=== PATIENT | male | born 1955 | race Caucasian/White ===

== ENCOUNTER 2016-08-20 03:06 | Inpatient (IN) | payer MEDICARE, OTHER ==
[2016-08-19 23:44] LABS: BASOPHIL# 0.1 X10e3 (0-0.3); BASOPHIL% 0.8 % (0-2.5); EOSINOPHIL# 0.1 X10e3 (0-0.7); EOSINOPHIL% 1.5 % (0.0-7.0); HEMATOCRIT 37.4 % (38.0-50.0); HEMOGLOBIN 12.3 gm/dL (13.0-16.0); LYMPHOCYTE# 1.2 X10e3 (1.0-3.5); LYMPHOCYTE% 14.3 % (17.0-45.0); MEAN CELL VOLUME 88.3 FL (83-96); MEAN CORPUSCULAR HGB CONC 32.9 g/dL (30-36); MEAN PLATELET VOLUME 8.7 FL (6.5-11.5); MONOCYTE# 0.9 X10e3 (0-1.0); MONOCYTE% 11.7 % (3.0-12.0); NEUTROPHIL# 5.8 X10e3 (1.5-7.1); NEUTROPHIL% 71.7 % (40-75); PLATELET COUNT 163 X10e3 (140-420); RED BLOOD COUNT 4.24 X10e (3.90-5.60); RED CELL DISTRIBUTION WIDTH 14.5 % (11.0-15.5); WHITE BLOOD COUNT 8.1 X10e3 (4.0-10.5)
[2016-08-19 23:45] LABS: DIFF IND NO
--- NOTE | ~2016-08-20 | CR72 ---
[facility] A Service of [facility] & [facility] RADIOLOGY TEXT RESULTS PATIENT: ANA MARIA WEISS LOCATION: [place] [address]- : [birth year] UNIT #: [id number] AGE: [address]: Antoine Aparicio MD SEX: M ORDER DR: [id number] [facility] [address] [place], [place] [address] [id number] MR#: [id number] Acc #: [id number] NAME: ANA MARIA WEISS : 1955 SEX: M STUDY DATE/TIME: 08/20/2016 0:17 UNIT: [facility] ROOM: [facility] STUDY DESCRIPTION: CR Chest Single View Portable Attending Physician: Antoine Aparicio M.D. Ordering Physician: Ed Doctor [id number] [facility] Primary Care Physician: Syl Abrams M.D. MEDICAL IMAGING REPORT This report is preliminary unless electronic signature is present EXAM Portable chest 08/20 INDICATIONS Left side chest pain radiating to the neck and down the arm. Symptoms for 1 day. History of CHF. FINDINGS AP portable chest compared with 03/08/2016. Cardiomegaly is stable. Left-side pacer unchanged. There is a small volume of pleural fluid on both sides of the chest. Minimal right base atelectasis. Lungs otherwise are clear. There is no pneumothorax. IMPRESSION Stable cardiomegaly. There are trace bilateral pleural effusions and there is some mild right base atelectasis. Dictated by... Jeremi Pinto Jr., M.D. THIS IS AN ELECTRONICALLY VERIFIED REPORT Jeremi Pinto Jr., M.D. at 08/20/2016 2:25 PM FRED/sabra TD: 08/20/2016 10:55 JOB #: [id number] MEDICAL IMAGING REPORT COPY
--- NOTE | ~2016-08-20 | CR72 ---
[facility] A Service of [facility] & [facility] RADIOLOGY TEXT RESULTS PATIENT: ANA MARIA WEISS LOCATION: [place] [address]- : [birth year] UNIT #: [id number] AGE: [address]: Antoine Aparicio MD SEX: M ORDER DR: [id number] [facility] [address] [facility] [address] [place], [place] [address] [id number] MR#: [id number] Acc #: [id number] NAME: ANA MARIA WEISS : 1955 SEX: M STUDY DATE/TIME: 08/23/2016 11:15 UNIT: [facility] ROOM: [facility] STUDY DESCRIPTION: CR Chest Single View Portable Attending Physician: Antoine Aparicio M.D. Ordering Physician: Antoine Aparicio M.D. Primary Care Physician: Syl Abrams M.D. MEDICAL IMAGING REPORT This report is preliminary unless electronic signature is present EXAM Chest portable 08/23/2016 11:/37 hours. HISTORY 61-year-old with one week history of cough, congestion and fluid overload. Mild CHF. COMPARISON 08/20/2016. FINDINGS Portable upright chest demonstrates stable moderate cardiomegaly with multilead pacer unchanged. There is no significant pulmonary venous distension. No interstitial edema or effusion. IMPRESSION 1. Stable cardiomegaly with pacer device. 2. Pulmonary vascularity is normal. The lungs are clear and there are no effusions. Dictated by... Shikha Avelar M.D. THIS IS AN ELECTRONICALLY VERIFIED REPORT Shikha Avelar M.D. at 08/23/2016 8:40 PM SMM/gz TD: 08/23/2016 14:53 JOB #: [id number] MEDICAL IMAGING REPORT COPY
--- NOTE | ~2016-08-20 | EKG ---
PATIENT: ANA MARIA WEISS UNIT #: [id number] Ventricular Rate: 115 BPM Atrial Rate: 119 BPM QRS Duration: 136 ms Q-T Interval: 328 ms QTC Calculation(Bezet): 453 ms Calculated R [place]: -42 degrees Calculated T [place]: 129 degrees Diagnosis Line: Atrial fibrillation Diagnosis Line: Left axis deviation Diagnosis Line: Left bundle branch block Diagnosis Line: Abnormal ECG Diagnosis Line: When compared with ECG of 08-MAR-2016 08:47, Diagnosis Line: No significant change was found Diagnosis Line: Confirmed by LYNDSAY SANCHES MD ([id number]) on 08/20/2016 Diagnosis Line: 7:15:12 AM INTERPRETING MD: MYRON ROSAS
--- NOTE | ~2016-08-20 | FU ---
[facility] Nutrition Therapy DATE: 08/23/16 Patient: ANA MARIA WEISS Physician: BEATRICE Address: [address] Room/Bed: [address] [place] [address], Zip: [place] [id number] Admit Date: 08/21/16 Date of : 55 Height: 5 7 Weight: 273 124.2 NUTRITION MONITORING/FOLLOW-UP: Reason: MD consult: 45-60g carbs per meal/diet education Assessment: RD previously assessed this patient. Provided both verbal and written CC diet education with the following handouts: -T2DM MNT -1800 calorie per day 5-day meal plan -DM label reading tips Patient showed moderate-poor understanding and motivation for education. Potential barriers include lifestyle, resistance to change, education level and disinterest. The patient was pleasant. See RD recs below, will follow-up as scheduled. Left RD contact info. Recommendations: Continue current diet, fluids per MD. RD provided diet education as stated above. Respectfully, Talisha Reyes RD, LD Food and Nutritional Services [facility] cc: client file
--- NOTE | ~2016-08-20 | DS ---
Unit #: [id number] #: [id number] Patient: ANA MARIA WEISS [id number] [address] [place], [place] [address] [id number] I MR#: [id number] NAME: ANA MARIA WEISS. ROOM: 547 Age: 61 Sex: M Admission Date: 08/20/2016 : 1955 Discharge Date: 08/23/2016 Attending Physician: Antoine Aparicio M.D. Primary Care Physician: Syl Abrams M.D. DISCHARGE SUMMARY DISCHARGE DIAGNOSES 1. Acute on chronic systolic/diastolic heart failure. 2. Musculoskeletal chest pain, ruled out for acute myocardial infarction. 3. Nonischemic cardiomyopathy with ejection fraction of 25% to 30%. 4. Hypertension. 5. Right bundle branch block. 6. Permanent atrial fibrillation and a controlled ventricular rate, on Eliquis. 7. Diabetes mellitus type 2, uncontrolled. 8. Obesity. 9. Hypokalemia. 10. Hypomagnesemia. DISCHARGE MEDICATIONS 1. Entresto 24/26 mg b.i.d. 2. Eliquis 5 mg b.i.d. 3. Amitriptyline 100 mg q.h.s. 4. Metoprolol tartrate 100 mg b.i.d. 5. Colace 100 mg daily p.r.n. 6. Furosemide 40 mg b.i.d. 7. Zaroxolyn 2.5 mg every other day. 8. Lipitor 40 mg q.h.s. 9. Cozaar 100 mg daily. 10. NovoLog insulin per sliding scale. 11. Lantus 30 units subcu q.h.s. 12. Aspirin 81 mg daily. 13. Tramadol 50 mg daily p.r.n. 14. Aldactone 12.5 mg daily. 15. Omeprazole 20 mg daily. 16. Potassium chloride 10 mEq daily. 17. Baclofen 10 mg q.h.s. HOSPITAL COURSE This is a 61-year-old male who presented to the emergency room with the complaint of chest pain and shortness of breath. He was admitted with acute on chronic systolic/diastolic heart failure. He was ruled out for an acute myocardial infarction where his troponin was negative. He had no acute electrocardiographic changes. His pain appeared to be musculoskeletal in origin where it was increased with deep inspiration. He had an elevated BNP of 1,337 that was treated with IV diuretics. Fluid restriction was continued. Because he had continued dyspnea and symptoms of orthopnea with 3+ leg edema, his diuretics were increased. Unit #: [id number] #: [id number] Patient: ANA MARIA WEISS He was in atrial fibrillation with rapid ventricular response that was treated with increased Metoprolol from 25 mg b.i.d. to 100 mg b.i.d. He eventually symptomatically improved. Because of his known heart failure, he was started on Entresto. The cost of Entresto was obtained, which was a little more than $8 per month, which was affordable. Electrolytes were supplemented. He had uncontrolled diabetes and a period of hypoglycemia. Dr. Mcrae saw the patient, and his insulin was adjusted. On the day of admission the patient's vital signs were stable. He still has some leg edema but has improved. Renal function increased to 1.6, but he has known chronic kidney disease. On the day of admission his creatinine was 1.4. He is stable for discharge. ASSESSMENT VITAL SIGNS: Blood pressure 147/98, heart rate 79, temperature 97.6. CHEST: Clear to auscultation. HEART: S1, S2 with irregularly irregular rhythm. ABDOMEN: Soft, nontender with bowel sounds present. EXTREMITIES: With 1+ leg edema. DIAGNOSTIC STUDIES LABORATORY STUDIES: Glucose 79, BUN 34, creatinine 1.4, sodium 139, potassium 3.2. White count 8.1, hemoglobin 12.3, hematocrit 37.4, platelet count 163. CONSULTATIONS Dr. Mcrae, endocrinology. DISCHARGE INSTRUCTIONS 1. The patient will be discharged home today. 2. Follow up with Dr. Mancilla in 2-4 weeks. 3. Follow up with Dr. Mcrae in 3-4 weeks. 4. The cost of Entresto for the patient is $8.20. 5. The patient will need a BMP in 4 weeks to follow up on creatinine. 6. Losartan has been discontinued. 7. Continue beta-sury and oral diuretics. 8. An 1,800 mL fluid restriction at home has been encouraged. Dictated by... Joyce CarmichaelPWillRWillN. for Lorenzo Elliott/nehemiah TD: 08/26/2016 07:36 JOB #: [id number] Unit #: [id number] #: [id number] Patient: ANA MARIA WEISS DISCHARGE SUMMARY X Samm Shepherd APRN DISCHARGE SUMMARY
--- NOTE | ~2016-08-20 | A ---
[facility] Nutrition Therapy DATE: 08/20/16 Patient: ANA MARIA Perez ABHISHEK Physician: HEIDY Address: [address] [facility] Room/Bed: [address] [place] [address], Zip: [place] [address] Admit Date: 08/20/16 Date of : [birth year] Height: 5 7 Weight: 256 116.11 NUTRITIONAL ASSESSMENT: REASON: Consult RE: Recent weight loss; MNS screen; High BMI PMH: Ischemic CMY, HTN, Afib, HTN, HLD, CHF, Anemia, Type 2 DM, Peripheral neuropathy Anthropometrics: Ht: 5'7"Wt: 256lbsBMI: 40 Labs: Gluc 198, BUN 27, Creat 1.3 Meds: Furosemide, Zofran I/O & Bowel function: None documented Skin Integrity: WNL Assessment: Pt is 61 year old male admitted for chest pain. Pt reports recent unintentional weight loss of approx 50 lbs. Supported by documented weights of 294 lbs on 03/08/16. Pt reports currently cutting out bread and reducing sodium intake d/t cardiac issues. Weight loss likely improved fluid status/intentional fat loss. Pt states normally good appetite, eating well. Recommended to continue to monitor weight changes. Pt currently on CC + HH diet with 720mL fluid restriction. Reports good tolerance of diet. Pt reports good understanding of nutritional needs, received education last admission and states no additional needs at this time. Will continue to monitor per protocol. Dx: Excessive caloric intake R/T PMH AEB BMI 40 Intervention: 1. HH/CC diet + 720 mL fluid restriction 2. Meds per MD Monitoring, Evaluation and Goals: 1. Continue to encourage adequate PO Intake 2. Prevent unintentional weight loss; maintain LBM Recommendations: 1. Continue to encourage adequtae PO Intake as tolerated Pt is Mild Nutritional Risk -- will f/u per protocol Respectfully, [facility] Nutrition Therapy DATE: 08/20/16 Patient: ANA MARIA WEISS Physician: BEATRICE Address: [address] [facility] Room/Bed: [address] [place] [address], Zip: [place] [address] Admit Date: 08/20/16 Date of : [birth year] Height: 5 7 Weight: [address], LD Food and Nutritional Services [facility] cc: client file
--- NOTE | ~2016-08-20 | CO ---
Unit #: [id number] #: [id number] Patient: ANA MARIA WEISS [id number] [address] [address] [id number] I MR#: [id number] NAME: ANA MARIA WEISS. ROOM: 547 Age: 61 Sex: M Admission Date: 08/21/2016 : 1955 Attending Physician: Antoine Aparicio M.D. Primary Care Physician: Syl Abrams M.D. Consultation Date: 08/22/2016 CONSULTATION REPORT REASON FOR CONSULTATION Management of diabetes mellitus with hypoglycemia. HISTORY OF PRESENT ILLNESS This is a 61-year-old male with history of multiple medical problems, who has type 2 diabetes mellitus and nonischemic cardiomyopathy. He has been admitted with the chest pain. He has insulin-dependent type 2 diabetes mellitus. He takes Lantus 90 units in the night and also takes some NovoLog about 40 units with meals. This morning, the patient had a low blood sugar of 45. I have been asked to see the patient for further evaluation and management. PAST MEDICAL HISTORY Type 2 diabetes mellitus, insulin dependent; nonischemic cardiomyopathy; hypertension; anticoagulation therapy with Eliquis at home; obstructive sleep apnea; morbid obesity; peripheral neuropathy; congestive heart failure. SOCIAL HISTORY Lives at home with . Nonsmoker. No alcohol. He is compliant with his medications. HOME MEDICATIONS Lantus 90 units at bedtime, NovoLog with meals about 40 units plus sliding scale, taking Eliquis 5 mg b.i.d., Lopressor, baclofen, losartan, Lipitor. ALLERGIES No known drug allergies. FAMILY HISTORY Coronary artery disease. REVIEW OF SYSTEMS 10-point review of system is remarkable for the shortness of air, hypoglycemia, and hyperglycemia. Rest of the 10-point review of system is unremarkable. PHYSICAL EXAMINATION GENERAL: He is awake, alert, oriented to time, place, and person. VITAL SIGNS: Stable, temperature 97.8, pulse is 80, respirations 21, blood pressure 172/112. HEENT: EOMI. Pupils equally reactive to light. NECK: Supple. No thyromegaly noted. CHEST: Good air entry. Unit #: [id number] #: [id number] Patient: WEISS,ANA MARIA L CVS: Regular rhythm. S1, S2. ABDOMEN: Obese. Bowel sounds positive. Nontender. EXTREMITIES: No ulcers noted. DIAGNOSTIC STUDIES LABORATORY RESULTS: Creatinine is 1.6, sodium is 141. A1c is 9.4. LDL is 77. ASSESSMENT 1. Type 2 diabetes mellitus, insulin dependent complicated with the hypoglycemia mostly due to the poor compliance of the diet at home. 2. Nonischemic cardiomyopathy. 3. Hypertension. 4. Hyperlipidemia. 5. Morbid obesity. 6. Obstructive sleep apnea. PLAN Note, the patient has not been received his Levemir. Today, I am going to decrease his Levemir to 30 units at the bedtime and NovoLog 8 units each meal plus continue low-dose supplemental insulin. We will get the nutrition consult for consistent carb diet and limiting his per day calories. I will continue to follow the patient for further management. Thanks again for consultation. Dictated by... Lorenzo Whaley/tariq TD: 08/23/2016 01:29 JOB #: [id number] CONSULTATION REPORT X Shelia Mcrae MD X CONSULTATION REPORT
--- NOTE | ~2016-08-20 | HP ---
Unit #: [id number] #: [id number] Patient: ANA MARIA WEISS [id number] [place] [address] [facility]. [place], [place] [address] [id number] I MR#: [id number] NAME: ANA MARIA WEISS ROOM: 547 Age: 61 Sex: M Admission Date: 08/20/2016 : 1955 Attending Physician: Antoine Aparicio M.D. Primary Care Physician: Syl Abrams M.D. HISTORY AND PHYSICAL HISTORY OF PRESENT ILLNESS This is a 61-year-old male, well known to our office, who follows with Dr. Mancilla. He presented to the ER on 08/19 in the afternoon with chest pain that started around 4 p.m. yesterday while watching TV. Pain lasted 30 to 40 minutes and was relived after he arrived to the ER and was administered some sublingual nitroglycerin. He stated the pain was a tightness but then told Dr. Aparicio that it was a sharp, shooting pain that occurred over his left anterior chest wall and underneath his left breast and also to his pacer site, which is his left subclavian area. Had pain down his left arm and down legs. He had associated nausea and dizziness and shortness of breath. He had one set of cardiac enzymes in the ER, which were negative, and an EKG, which just showed A fib with RVR and a left bundle branch block with left axis deviation and LVH, rate of 115, which, upon reviewing old EKGs, is his baseline. PAST MEDICAL HISTORY He has a past medical history of nonischemic cardiomyopathy, hypertension, chronic left bundle branch block, permanent A fib - maintained on anticoagulation with Eliquis at home. He had chest pain and ischemia on a Lexiscan Cardiolite stress test. Last cardiac catheterization in 2003 showed an EF of 45% with normal coronaries. A Lexiscan Cardiolite in 2013 showed no ischemia with reduced LV function and EF of 30%. He was last hospitalized in August of 2015 for congestive heart failure and was started on IV diuretics and inotropes for that. His echo at that time showed a reduced EF of 25% and severe global hypokinesis, moderate LVH, moderate mitral regurgitation and moderate tricuspid regurgitation. In September of 2015 he had a bi-V ICD placed. It is a [employer] device and was implanted by Dr. Raines. In addition, past medical history also includes nonischemic cardiomyopathy, chronic systolic congestive heart failure, hyperlipidemia, hypertension, anemia, type 2 diabetes, peripheral neuropathy, obesity and obstructive sleep apnea. SOCIAL HISTORY He lives with his at home. He has never smoked. He is a nondrinker and denies any illicit drug use. He does report that he is compliant with a 64-oz fluid restriction daily at home. He weighs himself every other day and is compliant with his medication regime. HOME MEDS 1. NovoLog with meals sliding scale p.r.n. 2. Lantus 90 units at bedtime. 3. Eliquis 5 mg b.i.d. 4. Lopressor 50 mg b.i.d. 5. Baclofen 10 mg at bedtime. Unit #: [id number] #: [id number] Patient: ANA MARIA WEISS 6. Losartan 50 mg daily. 7. Lipitor 40 mg daily. 8. Amitriptyline 100 mg at bedtime. 9. Omeprazole 20 mg daily. ALLERGIES No known allergies. FAMILY HISTORY Significant for coronary artery disease in his father and brother. REVIEW OF SYSTEMS A 10-point review of systems is negative except as noted above; however, he does state that he has had a 50-pound weight loss. I am not sure how long. It did say at his last office note in January that he had lost 8 pounds. PHYSICAL EXAMINATION GENERAL: Currently on examination, he was not in any pain. VITAL SIGNS: Temperature 99, heart rate 92, respirations 25, blood pressure 156/108. He is 116 kg. His BMI is 40. HEENT: Head is normocephalic. Pupils are equal, round and reactive to light and accommodation. Extraocular movements are intact. NEUROLOGIC: He is alert and oriented x3 and appropriate and follows commands. LUNGS: Fine crackles in the bases with decreased inspiratory effort. I had to prompt him several times to take a deep breath. CARDIOVASCULAR: He is in an irregularly irregular rhythm. S1, S2 noted. No murmurs, gallops or rubs were appreciated. ABDOMEN: His abdomen is obese but soft. He does have positive bowel sounds. He has no hepatojugular reflux. NECK: Neck is supple with slight bruit heard on the right carotid. No JVD noted. EXTREMITIES: Extremities have positive pulses and trace to 1+ edema to lower extremities. SKIN: Skin is pink with no rashes, ulcers or lesions seen. DIAGNOSTIC TESTING IMAGING: Chest x-ray showed stable cardiomegaly, trace bilateral pleural effusions and mild right base atelectasis. CARDIOVASCULAR: Twelve-lead EKG on 08/19/16 showed atrial fibrillation with an RVR and premature ventricular conducted complexes and a left axis deviation, left bundle branch block, ventricular rate of 115 beats per minute, QTc calculated at 453. LABORATORY TESTING: Sodium 137, potassium 3.9, chloride 103, CO2 25, BUN 27, creatinine 1.3, glucose 198. BNP is 1,050. Last A1C in 2016 was 9.4. Hemoglobin was 12.3, hematocrit 37.4, WBC 8.1, platelets 163. IMPRESSION 1. Acute on chronic systolic CHF. 2. Musculoskeletal atypical chest pain status post bi-V ICD. 3. Nonischemic cardiomyopathy. 4. Hypertension. 5. Permanent A fib with right bundle branch block. 6. Obesity with a BMI of 40. 7. Diabetes mellitus type 2. Unit #: [id number] #: [id number] Patient: ANA MARIA WEISS 8. Peripheral neuropathy. PLAN We will increase his beta-sury and his losartan dosing to prevent cardiac remodeling. We will add a diuretic and check lipid panel, BMP, mag in the morning with a BNP. Start him on aspirin 81 daily. Accu-Cheks a.c. and h.s. Healthy heart diet with an 1,800 mL fluid restriction, low sodium. Strict I's and O's, daily weight. Metoprolol to increase to 75 mg b.i.d. and increase his losartan to 100 mg p.o. q.h.s. Give him 1 dose of 40 mg IV Lasix and then 40 mg p.o. daily. Continue all his other home medications. He will likely be cleared for discharge in 1-2 days and will need a followup with Dr. Mancilla in our office. Dictated by Radha Rivera APRN for Lorenzo Elliott TD: 08/20/2016 13:07 JOB #: [id number] HISTORY AND PHYSICAL X X HISTORY AND PHYSICAL
[2016-08-20 00:15] LABS: BILIRUBIN, DIRECT 0.4 mg/dL (0.0-0.2); BILIRUBIN,INDIRECT 0.7 mg/dL (0.0-0.9); BILIRUBIN,TOTAL 1.1 mg/dL (0.2-2.0); BUN/CREATININE RATIO 20.76; CREATININE SERUM 1.3 mg/dL (0.6-1.4); GLOM FILT RATE Estimated 59.6 mL/min (>60); POTASSIUM 3.9 mmol/L (3.5-5.1); PROTEIN TOTAL SERUM 7.5 g/dL (6.0-8.3)
[2016-08-20 01:59] LABS: POC - CKMB 3.3 ng/mL (0.0-7.9); POC - TROPONIN <0.05 ng/mL (<=0.05)
[2016-08-20 02:04] LABS: POC - CKMB 2.7 ng/mL (0.0-7.9); POC - TROPONIN <0.05 ng/mL (<=0.05)
[~2016-08-20 03:06] MED LIST: ALDACTONE PO; AMITRIPTYLINE100 MG PO; AMITRYPTYLINE PO; AMLODIPINE BESYL5 MG PO; AMOXICILLIN250 MG PO; ASPIRIN81 MG PO; AURALGAN EAR DR14 ML AD; BACLOFEN10 MG PO; BENICAR HCT 20-1 TA1 PO; CARDURA PO; CARDURA4 M1 PO; CATAPRES-TTS-20.2 MG EXT; CLONIDINE HCL0.1 MG PO; COMBIVENT RESPIM4 GM INH; CORTISPORIN-TC10 M1 AD; COZAAR PO; DEMADEX PO; DOCUSATE SODIU100 MG PO; DSS100 MG PO; ELIQUIS5 MG PO; FLEXERIL10 MG PO; GLUCOTROL; HCTZ PO; K-DUR20 ME2 PO; KCL PO; LANTUS100 U/M1; LANTUS100 U/ML; LANTUS100 U/ML SUBQ; LANTUS100 UNITS/ SUBQ; LASIX PO; LASIX20 MG PO; LEVAQUIN750 M1 PO; LIORESAL10 MG PO; LIPITOR40 MG PO; LOPRESSOR PO; LORTAB 10-5001 EACH PO; LOSARTAN POTAS100 MG PO; LOSARTAN POTASS50 MG PO; METFORMIN HCL500 M1 PO; METOLAZONE2.5 MG PO; METOPROLOL SUCC25 MG PO; METOPROLOL TAR25 MG PO; MIRAPEX PO; MULTIVITAMIN1 UDCAP PO; NITROSTAT0.4 MG SL; NORVASC; NORVASC PO; NOVOLOG100 U/M1; NOVOLOG100 U/M1 SUBQ; NOVOLOG100 U/ML; NOVOLOG100 U/ML SUBQ; OMEPRAZOLE20 M1 PO; OMEPRAZOLE20 M2 PO; OXYGEN INH; OYSTER CALCIUM500 MG PO; POTASSIUM CHLO10 MEQ DOB; PRAVASTATIN SOD40 MG PO; PRILOSEC20 MG PO; ROPINIROLE HCL0.5 MG PO; TOPROL XL 50 MG50 M1 PO; TOPROL XL PO; TRAMADOL HCL50 M1 PO; TRAMADOL HCL50 M2 PO; TYLENOL #3 PO; TYLENOL/CODEINE1 TA1 PO; ULTRAM PO; [UNRECOGNIZED DRUG - OTHER] PO; [UNRECOGNIZED DRUG - REMARK]
[2016-08-20] MEDS ORDERED: DOCUSATE SODIU100 MG PO (08:53)
[2016-08-20 12:01] LABS: CHOLESTEROL 114 mg/dL (0-200); HDL CHOLESTEROL 24 mg/dL (29-75); LDL CHOLESTEROL 77 mg/dL (-130); LDL/HDL RATIO 3 RATIO (0-4); TRIGLYCERIDES 67 mg/dL (10-160)
[2016-08-20] MEDS ORDERED: BAYER CHEWABLE81 MG PO (12:24)
[2016-08-20] MEDS ORDERED: FUROSEMIDE40 MG PO (12:25)
[2016-08-20] MEDS ORDERED: COZAAR100 MG PO (12:26)
[2016-08-20] MEDS ORDERED: METOLAZONE2.5 MG PO (12:28)
[2016-08-20] MEDS ORDERED: METOPROLOL TAR25 MG PO (12:29)
[2016-08-20] MEDS ORDERED: NORVASC PO (12:30)
[2016-08-20] MEDS ORDERED: POTASSIUM CHLO10 MEQ PO (12:31)
[2016-08-20] MEDS ORDERED: ALDACTONE25 MG PO (12:32)
[2016-08-20] MEDS ORDERED: TRAMADOL HCL50 M1 PO (12:36)
[2016-08-21 07:46] LABS: BUN/CREATININE RATIO 21.33; CALCIUM SERUM 8.9 mg/dL (8.4-10.2); CREATININE SERUM 1.5 mg/dL (0.6-1.4); GLOM FILT RATE Estimated 50.6 mL/min (>60); MAGNESIUM 1.8 mg/dL (1.6-3.0); POTASSIUM 4.9 mmol/L (3.5-5.1)
[2016-08-22 13:02] LABS: BUN/CREATININE RATIO 22.5; CALCIUM SERUM 8.9 mg/dL (8.4-10.2); CREATININE SERUM 1.6 mg/dL (0.6-1.4); GLOM FILT RATE Estimated 46.9 mL/min (>60); MAGNESIUM 1.5 mg/dL (1.6-3.0); POTASSIUM 3.5 mmol/L (3.5-5.1)
[2016-08-23 12:23] LABS: BUN/CREATININE RATIO 24.28; CALCIUM SERUM 8.8 mg/dL (8.4-10.2); CREATININE SERUM 1.4 mg/dL (0.6-1.4); GLOM FILT RATE Estimated 54.8 mL/min (>60); MAGNESIUM 1.5 mg/dL (1.6-3.0); POTASSIUM 3.2 mmol/L (3.5-5.1)
[2016-08-23] MEDS ORDERED: LOPRESSOR PO (20:12)
[2016-08-23] MEDS ORDERED: ENTRESTO 24 MG1 EACH PO (20:27)
== END 2016-08-23 20:54 | disposition home or self-care (01) | DRG 291 ==
LOC: CED 03:06 → CEDOF 05:39 → C5B 08-21 18:20
PROVIDERS: Emergency Medicine; Internal Medicine Cardiovascular Disease; Nurse Practitioner
DX: I13.0 Hypertensive heart and chronic kidney disease with heart failure and stage 1 through stage 4 chronic kidney disease, or unspecified chronic kidney disease (principal); I50.43 Acute on chronic combined systolic (congestive) and diastolic (congestive) heart failure; E11.649 Type 2 diabetes mellitus with hypoglycemia without coma; I42.8 Other cardiomyopathies; I48.2 Chronic atrial fibrillation; Z68.41 Body mass index [BMI] 40.0-44.9, adult; E83.42 Hypomagnesemia; G62.9 Polyneuropathy, unspecified; R07.89 Other chest pain; I45.10 Unspecified right bundle-branch block; E66.01 Morbid (severe) obesity due to excess calories; E87.6 Hypokalemia; Z79.01 Long term (current) use of anticoagulants; Z79.4 Long term (current) use of insulin; Z95.810 Presence of automatic (implantable) cardiac defibrillator; N18.3 Chronic kidney disease, stage 3 (moderate)
CPT/HCPCS: 36415; 71010; 80048; 80061; 80076; 82553; 82947; 83735; 83880; 84484; 85025; 93005; 96374; 99285; J0360; J1815; J1940; J3475

== ENCOUNTER 2016-10-17 10:31 | Emergency (ER) | payer MEDICARE, OTHER ==
--- NOTE | ~2016-10-17 | CR72 ---
[facility] A Service of [facility] RADIOLOGY TEXT RESULTS PATIENT: ANA MARIA WEISS LOCATION: [facility] : 55 UNIT #: [id number] AGE: [address]: Raji Ochoa MD SEX: M ORDER DR: [id number] [facility] [address] [place], [place] [address] [id number] MR#: [id number] Acc #: [id number] NAME: ANA MARIA WEISS : 1955 SEX: M STUDY DATE/TIME: 10/17/2016 09:39 UNIT: [facility] ROOM: STUDY DESCRIPTION: CR Chest Single View Portable Attending Physician: Austin Ochoa M.D. Ordering Physician: Ed Doctor [id number] [facility] Primary Care Physician: Syl Abrams M.D. MEDICAL IMAGING REPORT This report is preliminary unless electronic signature is present EXAM Chest portable 10/17/2016 0939 hours HISTORY Shortness of air and swelling for 2 days. History of hypertension, diabetes, atrial fibrillation and congestive heart failure. COMPARISON 08/23/2016. FINDINGS Portable upright chest demonstrates moderate cardiomegaly and tortuous aorta unchanged. There is a biventricular pacer device unchanged. The pulmonary vascularity is within normal limits. The lungs are clear and there are no effusions. IMPRESSION Stable moderate cardiomegaly and biventricular pacer. Lung volumes are low with no definite acute pulmonary density or pleural effusion. Dictated by... Shikha Avelar M.D. THIS IS AN ELECTRONICALLY VERIFIED REPORT Shikha Avelar M.D. at 10/17/2016 11:56 AM MARY/devika TD: 10/17/2016 10:27 JOB #: [id number] MEDICAL IMAGING REPORT Page 1 of 1 COPY
--- NOTE | ~2016-10-17 | EKG ---
PATIENT: ANA MARIA WEISS UNIT #: [id number] Ventricular Rate: 90 BPM Atrial Rate: 163 BPM QRS Duration: 144 ms Q-T Interval: 408 ms QTC Calculation(Bezet): 499 ms Calculated R [place]: -44 degrees Calculated T [place]: 136 degrees Diagnosis Line: Atrial fibrillation with occasional Diagnosis Line: ventricular-paced complexes Diagnosis Line: Left axis deviation Diagnosis Line: Left bundle branch block Diagnosis Line: Abnormal ECG Diagnosis Line: When compared with ECG of 19-AUG-2016 23:16, Diagnosis Line: Paced beats seen Diagnosis Line: Confirmed by GUILLERMO IRAHETA MD ([id number]) on Diagnosis Line: 10/17/2016 9:36:22 PM INTERPRETING MD: SUDHEER
[2016-10-17 09:36] LABS: BASOPHIL# 0.1 X10e3 (0-0.3); BASOPHIL% 1.3 % (0-2.5); EOSINOPHIL# 0.1 X10e3 (0-0.7); EOSINOPHIL% 2.2 % (0.0-7.0); HEMATOCRIT 37.7 % (38.0-50.0); HEMOGLOBIN 12.1 gm/dL (13.0-16.0); LYMPHOCYTE# 0.9 X10e3 (1.0-3.5); LYMPHOCYTE% 13.5 % (17.0-45.0); MEAN CELL VOLUME 87.1 FL (83-96); MEAN CORPUSCULAR HEMOGLOBIN 27.8 PG (28-34); MEAN CORPUSCULAR HGB CONC 31.9 g/dL (30-36); MEAN PLATELET VOLUME 9.2 FL (6.5-11.5); MONOCYTE# 0.9 X10e3 (0-1.0); MONOCYTE% 13.8 % (3.0-12.0); NEUTROPHIL# 4.6 X10e3 (1.5-7.1); NEUTROPHIL% 69.2 % (40-75); PLATELET COUNT 190 X10e3 (140-420); RED BLOOD COUNT 4.33 X10e (3.90-5.60); RED CELL DISTRIBUTION WIDTH 17.4 % (11.0-15.5); WHITE BLOOD COUNT 6.7 X10e3 (4.0-10.5)
[2016-10-17 09:37] LABS: DIFF IND NO
[2016-10-17 10:12] LABS: ALBUMIN SERUM 3.1 g/dL (3.5-5.0); BILIRUBIN, DIRECT 0.4 mg/dL (0.0-0.2); BILIRUBIN,INDIRECT 0.9 mg/dL (0.0-0.9); BILIRUBIN,TOTAL 1.3 mg/dL (0.2-2.0); BUN/CREATININE RATIO 23.84; CALCIUM SERUM 8.6 mg/dL (8.4-10.2); CREATININE SERUM 1.3 mg/dL (0.6-1.4); GLOM FILT RATE Estimated 58.9 mL/min (>60); POTASSIUM 3.9 mmol/L (3.5-5.1); PROTEIN TOTAL SERUM 7.2 g/dL (6.0-8.3)
[~2016-10-17 10:31] MED LIST changes: +ALDACTONE25 MG PO; +BAYER CHEWABLE81 MG PO; +COZAAR100 MG PO; +ENTRESTO 24 MG1 EACH PO; +FUROSEMIDE40 MG PO; +POTASSIUM CHLO10 MEQ PO
[2016-10-17 11:19] LABS: POC - CKMB 3.1 ng/mL (0.0-7.9); POC - TROPONIN <0.05 ng/mL (<=0.05)
[2016-10-17 12:07] LABS: POC - CKMB 2.6 ng/mL (0.0-7.9); POC - TROPONIN <0.05 ng/mL (<=0.05)
== END 2016-10-17 13:58 | disposition home or self-care (01) ==
LOC: CED 10:31
PROVIDERS: Emergency Medicine
DX: R60.0 Localized edema (principal); R06.02 Shortness of breath; I50.9 Heart failure, unspecified; K21.9 Gastro-esophageal reflux disease without esophagitis; E11.9 Type 2 diabetes mellitus without complications
CPT/HCPCS: 71010; 80048; 80076; 82553; 82947; 83880; 84484; 85025; 93005; 99284

== ENCOUNTER 2016-10-22 12:57 | Inpatient (IN) | payer MEDICARE, OTHER ==
--- NOTE | ~2016-10-22 | EKG ---
PATIENT: ANA MARIA WEISS UNIT #: [id number] Ventricular Rate: 107 BPM Atrial Rate: 117 BPM QRS Duration: 144 ms Q-T Interval: 384 ms QTC Calculation(Bezet): 512 ms Calculated R [place]: -39 degrees Calculated T [place]: 143 degrees Diagnosis Line: Atrial fibrillation with rapid ventricular Diagnosis Line: response Diagnosis Line: Left axis deviation Diagnosis Line: Left bundle branch block Diagnosis Line: Abnormal ECG Diagnosis Line: No previous ECGs available Diagnosis Line: Confirmed by GUILLERMO IRAHETA MD ([id number]) on Diagnosis Line: 10/25/2016 10:56:33 PM INTERPRETING MD: SUDHEER
--- NOTE | ~2016-10-22 | CO ---
Unit #: [id number] #: [id number] Patient: ANA MARIA WEISS [id number] [facility]. [place], [place] [address] [id number] MR#: [id number] NAME: ANA MARIA WEISS. ROOM: 327 Age: 61 Sex: M Admission Date: 10/22/2016 : 1955 Attending Physician: Niurka Friend M.D. Primary Care Physician: [facility] Consultation Date: 10/22/2016 CONSULTATION REPORT REASON FOR CONSULT Congestive heart failure. HISTORY OF PRESENT ILLNESS This is a 61-year-old white male known to our group with a past medical history of chronic systolic congestive heart failure, nonischemic cardiomyopathy, and an ejection fraction of 25% to 30%. The patient underwent cardiac catheterization in 2003, which revealed normal coronaries. A Lexiscan Cardiolite stress test was completed in 2013, which revealed no ischemia. He is known to have permanent atrial fibrillation on Eliquis. He has history of an old bundle branch block. An AICD was implanted in 2015. He has history of hypertension, hyperlipidemia, diabetes mellitus, obesity, and neuropathy. He presented to the emergency department with complaints of swelling in his legs, abdomen, and hands for the past two weeks. The patient states that he has been on fluid restriction and has been taking all of his medications but he has gained 40-50 pounds. He is on a 64-ounce fluid restriction. He has also noted some shortness of breath as well as some dizziness with standing. He denies any syncope. His device has not shocked him. He has had some right anterior chest pain that is described as sharp. It is worse with inspiration. It starts in his chest and goes down into his feet. He denies any palpitations. There are no reports of PND or orthopnea. In the emergency department, his temperature was 98.7, pulse 86, respirations 17, blood pressure 161/99, and O2 saturation 98% on room air. Labs revealed a creatinine of 2 with a BUN of 40. Glucose was 184. Potassium was low at 3.4. BNP was high at 1809. Chest x-ray revealed cardiomegaly with mild vascular congestion. UA revealed protein in blood. Urine culture was sent in as pending. EKG revealed atrial fibrillation with a ventricular rate of 82 beats per minute. There was an old left bundle branch block noted. QTc was prolonged to 511 ms. He was started on IV diuretics. Nephrology was consulted due to acute kidney injury. Cardiology was consulted for congestive heart failure. PAST MEDICAL HISTORY 1. Recent admission to [facility], August 24, 2016, for acute on chronic systolic and diastolic congestive heart failure and nonischemic cardiomyopathy. 2. A 2D echocardiogram, August 26, 2015, revealed an ejection fraction Unit #: [id number] #: [id number] Patient: ANA MARIA WEISS of 25% to 30%, moderate LVH. Left ventricle moderately dilated. Right ventricle moderately dilated. Moderate mitral regurgitation. Moderate tricuspid regurgitation. Right ventricular systolic pressure 50-60 mmHg. 3. Normal coronaries per cardiac catheterization in 2003. 4. Lexiscan Cardiolite stress test in 2013 revealed no ischemia. 5. Permanent atrial fibrillation on Eliquis. 6. Old left bundle branch block. 7. History of AICD implant in 2015. 8. Hypertension. 9. Hyperlipidemia. 10. Diabetes mellitus. 11. Neuropathy. 12. Obesity. 13. Chronic kidney disease. 14. Nonsmoker. PAST SURGICAL HISTORY 1. Cardiac catheterization. 2. Biventricular AICD, October 10, 2015. 3. Carpal tunnel release. HOME MEDICATIONS 1. Baclofen 10 mg p.o. nightly. 2. Lipitor 40 mg p.o. daily. 3. Amitriptyline 100 mg p.o. nightly. 4. Omeprazole 20 mg p.o. daily. 5. NovoLog sliding scale protocol. 6. Eliquis 5 mg p.o. b.i.d. 7. Lantus 30 units subcutaneous at bedtime. 8. Colace 100 mg p.o. daily p.r.n. 9. Aspirin 81 mg p.o. daily. 10. Furosemide 40 mg p.o. b.i.d. 11. Metolazone 2.5 mg p.o. every other day. 12. Potassium chloride 10 mEq p.o. daily. 13. Spironolactone 12.5 mg p.o. daily. 14. Tramadol 50 mg p.o. daily as needed for pain. 15. Metoprolol tartrate 50 mg p.o. b.i.d. 16. Entresto 24/26 mg one tablet p.o. b.i.d. ALLERGIES No known drug allergies. SOCIAL HISTORY The patient lives in a private residence. He is a lifetime nonsmoker. There are no reports of alcohol or illicit drug use. FAMILY HISTORY Significant for coronary artery disease in his father and brother. REVIEW OF SYSTEMS A 10-point review of systems negative except for details noted above in HPI. PHYSICAL EXAMINATION VITAL SIGNS: Temperature 98.7, pulse 87, blood pressure 161/99. CONSTITUTIONAL: This is a 61-year-old white male in no acute distress. SKIN: Warm and dry. Unit #: [id number] #: [id number] Patient: ANA MARIA WEISS NECK: Supple. No jugular vein distention. No hepatojugular reflux. Normal carotid upstrokes. No carotid bruits auscultated. HEART: S1, S2. Irregularly irregular. No murmurs, rubs, or gallops. LUNGS: Bilateral breath sounds have good air entry throughout all lung tony except for diminished in the bases. Respirations event and nonlabored. No rales, rhonchi, or wheezes. ABDOMEN: Obese, slightly firm and distended. Positive bowel sounds auscultated x4 quadrants. Cannot rule out ascites. EXTREMITIES: Bilateral lower extremities have plus 4 pitting edema. DP and PT pulses 2+. Capillary refill less than 3 seconds. DIAGNOSTIC STUDIES LABORATORY: White blood cell count 6.3, hemoglobin 11.1, hematocrit 34.7, platelets 164,000. Sodium 137, potassium 3.4, chloride 100, CO2 of 24, BUN 40, creatinine 2, glucose 184. Previous creatinine of note 1.3 to 1.6. AST 22, ALT 16, alkaline phosphatase 122. BNP 1809. Urinalysis positive for 2+ protein, 2+ blood. Urine culture pending. IMAGING: Chest x-ray reveals cardiomegaly with mild vascular congestion and AICD placement. CARDIOVASCULAR: EKG reveals atrial fibrillation with controlled ventricular rate, left bundle branch block, prolonged QTc. IMPRESSION 1. Acute on chronic systolic congestive heart failure with an ejection fraction of 25% to 30%. 2. Nonischemic cardiomyopathy with a history of biventricular automated implantable cardioverter defibrillator in 2016. 3. Normal coronaries per cardiac catheterization in 2004. 4. Normal Lexiscan Cardiolite stress test in 2013. 5. Dizziness, rule out orthostasis. 6. Acute kidney injury. 7. Possible urinary tract infection. 8. Hypokalemia. 9. Obesity. 10. Permanent atrial fibrillation with controlled ventricular rate on Eliquis. 11. Hypertension. 12. Hyperlipidemia. 13. Diabetes mellitus. PLAN 1. The patient presented to the hospital with complaints of worsening edema, shortness of breath, and dizziness. He was admitted for congestive heart failure and acute kidney injury. 2. Will continue IV diuretics as dosed. 3. The patient will be started on dobutamine drip. While dobutamine infuses, beta sury will be held. 4. Patient will be continued on aspirin and Eliquis per home dosing. His Entresto will be stopped due to dizziness and elevated creatinine. 5. Orthostatic vital signs and a TSH level have been ordered. 6. Due to occasional PVCs on the monitor and complaints of dizziness, will check automated implantable cardioverter defibrillator to rule out arrhythmias. 7. The patient has been advised to lose weight. Unit #: [id number] #: [id number] Patient: ANA MARIA WEISS Dictated by... GURWINDER Juarez TD: 10/23/2016 16:54 JOB #: [id number] CONSULTATION REPORT Page 1 of 1 X X CONSULTATION REPORT
--- NOTE | ~2016-10-22 | HP ---
Unit #: [id number] #: [id number] Patient: ANA MARIA WEISS [id number] [facility]. [place], [place] [address] [id number] MR#: [id number] NAME: ANA MARIA WEISS. ROOM: Age: 61 Sex: M Admission Date: 10/22/2016 : 1955 Attending Physician: Leroy Gustafson M.D. Primary Care Physician: [facility]. HISTORY AND PHYSICAL CHIEF COMPLAINT Dizziness. HISTORY OF PRESENT ILLNESS The patient is a 61-year-old male with past medical history of CHF, atrial fibrillation, chronic anticoagulation, chronic left bundle-branch block, hypertension, hyperlipidemia, diabetes, obstructive sleep apnea, who presented to the emergency department for evaluation of the above. The patient states that he has had a one-month history of increasing lower extremity swelling and shortness of breath. He has three-pillow orthopnea that is not a new problem. He reports paroxysmal nocturnal dyspnea. He had had dyspnea on exertion when walking across the room. He states that he has had intermittent chest pain that he describes as "achy." It is in his mid chest. It has intermittently radiated to his neck. It typically lasts two to three minutes and resolves spontaneously. He has had associated shortness of breath and diaphoresis in association with the pain. He does not currently have chest pain. He also reports increasing lower extremity swelling. He thinks he has gained weight but he is not sure exactly how much. He states that he has been taking his medications as prescribed. He has been feeling intermittently lightheaded. He also states that he has been taking ibuprofen three to four tablets daily for at least several weeks. In the emergency department initial pulse and blood pressure were 86 and 161/99 respectively. Oxygen saturation 98% on room air. Chest x-ray shows no change from prior. BNP is 1809. BUN and creatinine 40 and 2 respectively. He is being admitted to [facility] for evaluation and further treatment. PAST MEDICAL HISTORY 1. Admission to [facility] August 20-2016 for congestive heart failure exacerbation. Entresto was added to his medications at that time. 2. Congestive heart failure. Per the cardiology H and P from August 20, 2016 the patient had an echocardiogram in August of 2015 that showed an ejection fraction of 25% with severe global hypokinesis, moderate left ventricular hypertrophy, moderate mitral regurgitation and moderate tricuspid regurgitation. He is followed by Dr. Silva and Dr. Aparicio. 3. Hypertension. 4. Hyperlipidemia. 5. Chronic left bundle-branch block. Unit #: [id number] #: [id number] Patient: ANA MARIA WEISS 6. Paroxysmal atrial fibrillation, on chronic anticoagulation with Eliquis. 7. Diabetes. 8. Obstructive sleep apnea, noncompliant with CPAP. PAST SURGICAL HISTORY 1. Cardiac catheterization. Per Cardiology admission note from August 20, 2016 the patient had a cardiac catheterization in 2003 that showed an ejection fraction of 45% with normal coronaries. 2. Wrist surgery. 3. AICD/pacemaker placement. SOCIAL HISTORY The patient lives with his . There is no tobacco or alcohol use. He typically walks without assistance. His code status is a Full Code. FAMILY HISTORY Family history is notable for his dad and brother having coronary artery disease. ALLERGIES No known allergies. HOME MEDICATIONS 1. Baclofen 10 mg q.h.s. 2. Lipitor 40 mg daily. 3. Amitriptyline 100 mg q.h.s. 4. Omeprazole 20 mg daily. 5. NovoLog sliding scale. 6. Eliquis 5 mg b.i.d. 7. Lantus 30 units subcu q.h.s. 8. Colace 100 mg daily p.r.n. 9. Aspirin 81 mg daily. 10. Furosemide 40 mg b.i.d. 11. Metolazone 2.5 mg every other day. 12. Lopressor 50 mg b.i.d. 13. Entresto b.i.d. REVIEW OF SYSTEMS A complete review of systems is negative except as indicated in the HPI. DIAGNOSTIC STUDIES CARDIOVASCULAR: EKG shows atrial fibrillation with a rate of 82 beats per minute. IMAGING: Chest x-ray shows no change from prior. LABORATORY: Complete blood count notable for hemoglobin and hematocrit of 11.1 and 34.7 respectively. Comprehensive metabolic panel notable for potassium of 3.4, glucose is 184, BUN and creatinine 40 and 2 respectively, alkaline phosphatase 122, albumin is 3.3, BNP is 1809. Urinalysis notable for 2+ protein, 2+ blood, 10 to 25 red blood cells. Troponin is less than 0.05. PHYSICAL EXAMINATION VITAL SIGNS: Temperature is 98.7. Pulse 86. Respirations 17. Blood pressure 161/99. Oxygen saturation is 98% on room air. GENERAL: The patient is a male who is awake and alert, in no Unit #: [id number] #: [id number] Patient: ANA MARIA WEISS acute distress. HEENT: The head is atraumatic. Mucous membranes are moist. NECK: Neck is supple. Trachea is midline. CARDIOVASCULAR: Irregular. LUNGS: Demonstrate decreased breath sounds at the bases. Breathing is mildly labored with conversation. ABDOMEN: Abdomen is obese. He does have edema involving the lower abdomen. Bowel sounds are present. He is nontender. EXTREMITIES: Show 3+ pitting edema to the lower abdomen. NEUROLOGIC: The patient is awake and alert. He follows commands. PSYCHIATRIC: Mood and affect are normal. The patient is cooperative. SKIN: Skin of examined areas is warm and dry. ASSESSMENT The patient is a 61-year-old male with: 1. Congestive heart failure exacerbation. The patient's ejection fraction was 25% in August of 2015. 2. Acute kidney injury. The patient's creatinine was 1.3 on October 17, 2016. It is 2 today. The patient is on Lasix which could be contributing. Additionally he has been taking ibuprofen three to four tablets daily for the past several weeks. 3. Chest pain. 4. Hypokalemia. 5. Atrial fibrillation, paroxysmal. 6. Chronic anticoagulation with Eliquis. 7. Chronic left bundle-branch block. 8. Hypertension. 9. Hyperlipidemia. 10. Diabetes. The patient had a hemoglobin A1C August 27, 2015 that was 9.4. The patient states that his blood sugars are typically in the 180 to 200 range. 11. Obstructive sleep apnea, noncompliant with CPAP. PLAN 1. Admit to intermediate level. 2. Two gram sodium, 1800 mL fluid restricted, heart heathy, consistent carb diet. 3. Strict Is and Os. 4. Daily weights. 5. Lasix 40 mg IV q.12 h. with first dose now. 6. Serial cardiac enzymes. 7. Check TSH and magnesium levels. 8. Two-D echo if not done within the past year. 9. Consult Dr. Aparicio regarding CHF exacerbation. 10. Check magnesium level. 11. Replace potassium. 12. Low dose sliding scale insulin with Accu-Cheks. 13. Hemoglobin A1C. 14. Supplemental oxygen. 15. Urine sodium, creatinine and eosinophils. 16. Renal ultrasound for further evaluation of acute kidney injury. 17. Bladder scan, check postvoid residual. 18. Check CPK. 19. Consult Dr. Alston regarding acute kidney injury. 20. Orthostatics q. shift. 21. PT/OT to evaluate and treat. 22. Urine culture and sensitivity on urine in the lab. 23. Additional workup and consultants based on above. Unit #: [id number] #: [id number] Patient: ANA MARIA WEISS 24. Repeat labs in the morning. Dictated by Lorenzo Mendes/shaun TD: 10/22/2016 15:33 JOB #: [id number] HISTORY AND PHYSICAL Page 1 of 1 X Hui March MD X HISTORY AND PHYSICAL
--- NOTE | ~2016-10-22 | BMI ---
[facility] Nutrition Therapy DATE: 10/24/16 Patient: ANA MARIA WEISS Physician: SINGH Address: [address] [place] [address] Room/Bed: [address] [place] [address], Zip: [place] [address] Admit Date: 10/22/16 Date of : 55 Height: 5 7 Weight: 285 129.6 HIGH BMI NOTE: ANTHROPOMETRICS: HT: 67" WT: 129.6 KG BMI: 44.7 DIET: 2 GRAM NA+/ HH/ CC/ FLUID RESTRICTION RECOMMENDATIONS: 1. CONTINUE CURRENT DIET TO PROMOTE GRADUAL WEIGHT LOSS TOWARDS HEALTHY BMI Respectfully, ELMER APARICIO RD, LD [employer] [facility] [employer] cc: client file
--- NOTE | ~2016-10-22 | DS ---
Unit #: [id number] #: [id number] Patient: ANA MARIA DAVIS [id number] [address] [id number] I MR#: [id number] NAME: ANA MARIA DAVIS. ROOM: 327 Age: 61 Sex: M Admission Date: 10/22/2016 : 1955 Discharge Date: 10/25/2016 Attending Physician: Niurka Friend M.D. Primary Care Physician: [facility]. DISCHARGE SUMMARY PRINCIPAL DIAGNOSES 1. Acute on chronic systolic congestive heart failure with ejection fraction of approximately 25%. 2. Acute kidney injury on chronic kidney disease stage 3, now at baseline. Creatinine of 1.5. 3. Visual hallucinations secondary to exhaustion. 4. Diabetes mellitus type 2, insulin requiring and uncontrolled with hemoglobin A1c of 8.9. 5. Hypomagnesemia. 6. Hypertension, uncontrolled. 7. Chronic atrial fibrillation, rate controlled and maintained on Eliquis. 8. Mild protein malnutrition. 9. Morbid obesity. 10. Gastroesophageal reflux disease. CONSULTANTS 1. Dr. Silva - Cardiology. 2. Dr. Wiseman - Nephrology. PROCEDURES 1. Two dimensional echocardiogram, results of which are currently pending. 2. Chest x-ray on October 22, 2016, with no acute findings. 3. Bilateral renal ultrasound on October 22, 2016, without evidence of hydronephrosis. Incidental ascites noted. CLINICAL HISTORY/HOSPITAL COURSE Mr. Davis is a nice 61-year-old male with a history of systolic congestive heart failure who presents to the emergency department with complaints of dizziness. Please refer to H and P for further details. The patient also had complaints of increasing lower extremity edema and increasing shortness of breath with orthopnea. Please refer to H and P for further details. In the emergency department, the patient was found to have normal oxygen saturations but was hypertensive with an elevated BNP of 1800. Creatinine was also mildly elevated at 2.0 and examination reveals significant edema. Patient was subsequently admitted. Patient was placed ultimately on Bumex drip and dobutamine under the guidance of Dr. Wiseman and Dr. Silva. Patient has significant diuresis in the first 24 to 36 hours with approximately 10 L of diuresis. After this, patient felt significantly better. Dobutamine was ultimately discontinued and on day of discharge Bumex drip has been stopped. Diuresis has significantly declined since then with approximately 1700 mL Unit #: [id number] #: [id number] Patient: ANA MARIA DAVIS yesterday. We are going to transition to oral diuretics upon discharge. I will note, a 2D echo was done but, unfortunately, report has not made it to chart. However, patient's last EF was approximately 25%. In regards to patient's acute kidney injury, creatinine returned to his baseline of 1.5 with diuresis. Elevated creatinine was secondary to low cardiac output. Patient has uncontrolled diabetes at baseline. He did receive diabetic education during hospitalization. Sugars here remained 120 to 170 and I suspect diet is a significant factor at home. Again, he has received education. Patient's only other significant finding was some hallucinations that occurred just briefly. Patient has not slept for four to five days due to his diuresis and I suspect this is the cause. No other workup has been positive. Patient was also having these hallucinations prior to presentation, according to patient's . I am going to change him from amitriptyline to trazodone at home and see if his sleeping improves. He needs outpatient polysomnography. DISCHARGE CONDITION Stable. DISCHARGE STATUS Discharge to home. DISCHARGE MEDICATIONS 1. Bumex 2 mg p.o. b.i.d. 2. Hydralazine 50 mg t.i.d. 3. Magnesium oxide 400 mg p.o. b.i.d. 4. Trazodone 50 mg at bedtime. 5. Aldactone 12.5 mg daily. 6. Omeprazole 20 mg daily. 7. [place] 5/325, one tablet p.o. t.i.d. This is a home medication. 8. Potassium chloride ER 10 mEq daily. 9. Baclofen 10 mg at bedtime. 10. Entresto 24/26 mg, one b.i.d. 11. Eliquis 5 mg b.i.d. 12. Metoprolol tartrate 100 mg b.i.d. 13. Colace 100 mg p.o. daily p.r.n. for constipation. 14. Metolazone 2.5 mg on Friday, Friday, Friday. 15. Lipitor 10 mg daily. 16. NovoLog subcu t.i.d. with meals. 17. Lantus 30 units subcutaneously at bedtime. 18. Aspirin 81 mg daily. DISCHARGE INSTRUCTIONS Patient was instructed on an 1800 mL fluid restricted low salt diet. He should also follow a diabetic diet and to continue his Accu-Cheks a.c. and h.s. at home. He can increase his activity as tolerated. FOLLOWUP The patient has a followup appointment with Dr. Mancilla on , December 10, at 2:15 p.m. He should get an AICD check at that time as well. Patient will follow up with Dr. Wiseman in approximately four weeks and patient to follow up with his primary care provider in four weeks as well. Unit #: [id number] #: [id number] Patient: ANA MARIA DAVIS Time spent on discharge - 33 minutes. Dictated by... Niurka Friend M.D. JAMES/fiorella TD: 10/28/2016 07:12 JOB #: [id number] DISCHARGE SUMMARY Page 1 of 1 X Niurka Friend MD X DISCHARGE SUMMARY
--- NOTE | ~2016-10-22 | CO ---
Unit #: [id number] #: [id number] Patient: ANA MARIA DAVIS [id number] [address] [place], [place] [address] [id number] I MR#: [id number] NAME: ANA MARIA DAVIS. ROOM: 327 Age: 61 Sex: M Admission Date: 10/22/2016 : 1955 Attending Physician: Niurka Friend M.D. Primary Care Physician: [facility] Consultation Date: 10/22/2016 CONSULTATION REPORT REASON FOR CONSULTATION Acute on chronic kidney disease. HISTORY OF PRESENT ILLNESS Mr. Davis is a 61-year-old white male with a known history of congestive heart failure, who is readmitted for the same. He was actually just here a few months ago for a CHF exacerbation and Dr. Estrada saw the patient back in 07/2015 for a similar presentation. We were asked to get involve because of worsening kidney issues. The patient initially presented with worsening lower extremity swelling and shortness of breath. He has also had orthopnea. The patient knows he is gained a significant amount of weight, but he is not clear exactly how much. The patient's legs are clearly very swollen. The patient used to use a lot of NSAIDs, but he has not been using those as of late. The patient has already been seen by Cardiology and started on a dobutamine drip. His Entresto was discontinued. He denies any history of kidney stones. No flank pain currently. PAST MEDICAL HISTORY Significant for CHF with an EF of 25%; moderate mitral regurgitation; moderate tricuspid regurgitation; hypertension; hyperlipidemia; diabetes; paroxysmal atrial fibrillation; obstructive sleep apnea, noncompliant with CPAP. PAST SURGICAL HISTORY He has had coronary cath into place, wrist surgery, and AICD placement. HOME MEDICATIONS Baclofen 10 mg at bedtime, Lipitor 40 mg a day, amitriptyline 100 mg at bedtime, omeprazole 20 mg a day, sliding-scale insulin, Eliquis 5 mg b.i.d., Lantus insulin 30 units at bedtime, Colace 100 mg daily, baby aspirin daily, furosemide 40 mg b.i.d., metolazone 2.5 mg every other day, Lopressor 50 mg b.i.d., and Entresto b.i.d. ALLERGIES No known allergies. FAMILY HISTORY Significant for heart disease. There is no family history of kidney disease or dialysis that here as are aware of. SOCIAL HISTORY He is . Does not smoke or drink. No drug use. He is a full code at this time. Unit #: [id number] #: [id number] Patient: ANA MARIA DAVIS REVIEW OF SYSTEMS A complete 12-point review of systems was completed with the above findings. In addition, he denies any headaches. No nosebleed, sore throat, or earache. No chest pain. No palpitations. No cough or hemoptysis. No nausea, vomiting, or diarrhea. No bright red blood per rectum or melena. No hematuria. No rashes. No itching. No fevers. No chills. No night sweats or hot flashes. No intolerance to heat or cold. No bleeding issues. No depression or anxiety. Unless otherwise indicated, the review of systems was negative. PHYSICAL EXAMINATION VITAL SIGNS: The patient is afebrile. Pulse 86, respiratory rate 12, blood pressure 153/119. GENERAL: This is a 61-year-old male, sitting up on the side of bed, alert, answers questions appropriately, in no acute distress. HEENT: Head is atraumatic and normocephalic. Eyes show pale conjunctivae with no scleral icterus. No nasal drainage or nosebleed. Oropharynx is moist. He does have a narrow posterior pharyngeal airway. NECK: Thick. No rigidity. HEART: Irregularly irregular with murmur present. No gallop or rub appreciated. LUNGS: Have diminished breath sounds especially at the bases with a few bibasilar rales. Breathing is nonlabored at rest. ABDOMEN: Obese, soft, nontender. Bowel sounds are present. EXTREMITIES: No lower extremity clubbing or cyanosis. He has 2 to 3+ pitting edema below the knees bilaterally. SKIN: Dry with no rashes. MUSCULOSKELETAL: No CVA tenderness to palpation. NEUROLOGIC: Cranial nerves are grossly intact, but no gross motor deficits. LYMPHATIC: There is no neck or cervical lymphadenopathy. PSYCHIATRIC: Mood and affect appear normal. DIAGNOSTIC STUDIES IMAGING STUDIES: Chest x-ray showed no active disease and vascular markings were normal. He did have a kidney ultrasound in 07/2015 that showed mild bilateral renal cortical thinning. LABORATORY RESULTS: CK level was 195. TSH normal. Magnesium level was 1.6. UA done today showed 2+ protein with 10 to 25 red blood cells per high-powered field. BNP was 1800. Chemistry earlier; sodium 137, potassium 3.4, chloride 100, bicarb 24, glucose 184, BUN 40, creatinine was 2, albumin just 3.3. CBC showed a hemoglobin of 11.1, no peripheral eosinophilia. Back on the , creatinine was 1.3. Previous chemistries showed creatinines mostly in the mid 1 range and certainly does fluctuate based on his congestive heart failure. The patient has had intermittent proteinuria for the last several years. He had a protein-creatinine ratio back in 07/2015 that was actually unremarkable. ASSESSMENT AND PLAN 1. Acute on chronic kidney disease stage 3. I suspect this is due to decompensated congestive heart failure. He had told Dr. March on admission and he was taking some NSAIDs, but he denied that to me. Do agree with stopping the Entresto and starting dobutamine drip. I will also put him on a Bumex drip and we will monitor response. 2. Congestive heart failure with an ejection fraction of 25%. Again, we will place him on a Bumex drip alongside his dobutamine drip. Unit #: [id number] #: [id number] Patient: ANA MARIA DAVIS 3. Proteinuria. The patient is a great candidate for long-term VJ inhibitor, which we will reinitiate once he is aggressively diuresed. 4. Diabetes. This is poorly controlled with recheck pending. Hemoglobin A1c in the computer had been 9.4 and 10.9 respectively. 5. History of automatic implantable cardioverter-defibrillator. 6. Hypertension. The patient's blood pressure is quite high and should respond to diuresis. 7. Chronic atrial fibrillation. 8. Obesity syndrome. 9. The patient does seem to have a very poor insight into his congestive heart failure diagnosis and management. For example, he is not doing daily weights at home and we will try to educate the patient about home management as we go along here in the hospital. I would like to thank Dr. March for this consult and the opportunity to participate in evaluation and care of Mr. Davis. Dictated by... Reno Wiseman Jr., M.D. JOSE ALFREDO/tariq TD: 10/23/2016 03:40 JOB #: [id number] CONSULTATION REPORT Page 1 of 1 X Reno Wiseman MD CONSULTATION REPORT
--- NOTE | ~2016-10-22 | US77 ---
[facility] A Service of [facility] RADIOLOGY TEXT RESULTS PATIENT: ANA MARIA WEISS LOCATION: [facility] : 55 UNIT #: [id number] AGE: [address]: Hui March MD SEX: M ORDER DR: [id number] [facility]. [place], [place] [address] [id number] I MR#: [id number] Acc #: [id number] NAME: ANA MARIA WEISS : 1955 SEX: M STUDY DATE/TIME: 10/22/2016 17:01 UNIT: [address] ROOM: [facility] STUDY DESCRIPTION: US Kidney Bilateral Complete Attending Physician: Hui March M.D. Ordering Physician: Hui March M.D. Primary Care Physician: [facility] MEDICAL IMAGING REPORT This report is preliminary unless electronic signature is present EXAM Renal ultrasound bilateral, 10/22/2016 INDICATION 61-year-old male with diabetes, acute renal injury. Hypertension. BUN 40, creatinine 2.0, GFR 35. TECHNIQUE Sonographic imaging of the kidneys was performed bilaterally. NO comparisons. FINDINGS The right kidney measures 11.7 cm x 5.3 cm x 6.2 cm. The left measures 11.1 cm x 5.7 cm x 5.8 cm. No hydronephrosis or shadowing stone on either side. Bladder unremarkable. Incidental note is made of ascites surrounding the liver and spleen. IMPRESSION 1. No hydronephrosis or shadowing stone on either side. 2. Bladder unremarkable. 3. Incidental ascites. Dictated by... Georges Garcia M.D. THIS IS AN ELECTRONICALLY VERIFIED REPORT Georges Garcia M.D. at 10/22/2016 10:50 PM CAROLINA/jomar TD: 10/22/2016 21:44 JOB #: [id number] [facility] A Service of [facility] RADIOLOGY TEXT RESULTS PATIENT: ANA MARIA WEISS LOCATION: [facility] 327-01 : 55 UNIT #: [id number] AGE: [address]: Hui March MD SEX: M ORDER DR: MEDICAL IMAGING REPORT Page 1 of 1 COPY
--- NOTE | ~2016-10-22 | EKG ---
PATIENT: ANA MARIA WEISS UNIT #: [id number] Ventricular Rate: 82 BPM Atrial Rate: 288 BPM QRS Duration: 150 ms Q-T Interval: 438 ms QTC Calculation(Bezet): 511 ms Calculated R [place]wood: -64 degrees Calculated T [place]: 131 degrees Diagnosis Line: Atrial fibrillation with occasional Diagnosis Line: ventricular-paced complexes Diagnosis Line: Left bundle branch block Diagnosis Line: Abnormal ECG Diagnosis Line: When compared with ECG of 17-OCT-2016 09:16, Diagnosis Line: Vent. rate has decreased BY 8 BPM Diagnosis Line: Confirmed by GUILLERMO IRAHETA MD ([id number]) on Diagnosis Line: 10/22/2016 10:29:21 PM INTERPRETING MD: SUDHEER
--- NOTE | ~2016-10-22 | CR72 ---
[facility] A Service of [facility] RADIOLOGY TEXT RESULTS PATIENT: ANA MARIA WEISS LOCATION: [facility] : 55 UNIT #: [id number] AGE: [address]: Hui March MD SEX: M ORDER DR: [id number] [facility]. [place], [place] [address] [id number] MR#: [id number] Acc #: [id number] NAME: ANA MARIA WEISS : 1955 SEX: M STUDY DATE/TIME: 10/22/2016 12:58 UNIT: BRADLY ROOM: STUDY DESCRIPTION: CR Chest Single View Portable Attending Physician: Leroy Gustafson M.D. Ordering Physician: Leroy Gustafson M.D. Primary Care Physician: [facility], [facility]. MEDICAL IMAGING REPORT This report is preliminary unless electronic signature is present EXAM portable chest HISTORY Dizziness and shortness of breath for the past 2 weeks. TECHNIQUE Single view chest was obtained. COMPARISON 10/17/2016 FINDINGS Single view chest shows pacemaker leads in satisfactory position. Stable cardiomegaly is noted. No new infiltrates are seen on either side. The inspiratory effort is shallower than on the previous examination and taking this into account, no changes are seen. Vascular markings are normal. IMPRESSION Shallower inspiratory effort. No change from the previous exam when this is taken into account. No active disease. Dictated by... Jeremi Birmingham M.D. THIS IS AN ELECTRONICALLY VERIFIED REPORT Jeremi Birmingham M.D. at 10/22/2016 5:02 PM ABDIFATAH/nestor TD: 10/22/2016 14:15 JOB #: [id number] [facility] A Service [facility] RADIOLOGY TEXT RESULTS PATIENT: ANA MARIA WEISS LOCATION: [facility] : 55 UNIT #: [id number] AGE: [address]: Hui March MD SEX: M ORDER DR: MEDICAL IMAGING REPORT Page 1 of 1 COPY
--- NOTE | ~2016-10-22 | DS ---
Unit #: [id number] #: [id number] Patient: ANA MARIA WEISS [id number] [address] [place], [place] [address] [id number] I MR#: [id number] NAME: ANA MARIA WEISS. ROOM: 327 Age: Sex: M Admission Date: 10/22/2016 : 1955 Discharge Date: 10/25/2016 Attending Physician: Niurka Friend M.D. Primary Care Physician: [facility] DISCHARGE SUMMARY ADDENDUM Patient's two-dimensional echocardiogram never made it to the chart. Thus, it was reviewed in [facility]. Patient's ejection fraction is actually 55%. He has moderate tricuspid regurgitation and significant right ventricular (1) failure. Thus, patient's discharge diagnosis is acute on chronic (2) congestive heart failure. Dictated by... Niurka Friend M.D. JAMES/amadou TD: 10/26/2016 14:31 JOB #: [id number] DISCHARGE SUMMARY Page 1 of 1 X Niurka Friend MD X DISCHARGE SUMMARY
[2016-10-22 13:17] LABS: BASOPHIL# 0.1 X10e3 (0-0.3); BASOPHIL% 1.4 % (0-2.5); EOSINOPHIL# 0.1 X10e3 (0-0.7); EOSINOPHIL% 1.6 % (0.0-7.0); HEMATOCRIT 34.7 % (38.0-50.0); HEMOGLOBIN 11.1 gm/dL (13.0-16.0); LYMPHOCYTE% 15.2 % (17.0-45.0); MEAN CELL VOLUME 85.7 FL (83-96); MEAN CORPUSCULAR HEMOGLOBIN 27.5 PG (28-34); MEAN CORPUSCULAR HGB CONC 32.1 g/dL (30-36); MEAN PLATELET VOLUME 9.2 FL (6.5-11.5); MONOCYTE% 16.5 % (3.0-12.0); NEUTROPHIL# 4.1 X10e3 (1.5-7.1); NEUTROPHIL% 65.3 % (40-75); PLATELET COUNT 164 X10e3 (140-420); RED BLOOD COUNT 4.05 X10e (3.90-5.60); RED CELL DISTRIBUTION WIDTH 17.1 % (11.0-15.5); WHITE BLOOD COUNT 6.3 X10e3 (4.0-10.5)
[2016-10-22 13:22] LABS: DIFF IND NO
[2016-10-22 13:37] LABS: URINE SOURCE CLEAN CATCH
[2016-10-22 13:41] LABS: URINE APPEARANCE CLEAR; URINE BILIRUBIN NEG (NEG); URINE BLOOD 2+ (NEG); URINE COLOR YELLOW; URINE GLUCOSE NEG (NEG); URINE KETONE NEG (NEG); URINE LEUKOCYTE ESTERASE NEG (NEG); URINE NITRATE NEG (NEG); URINE PH 5.5 (5-8); URINE PROTEIN 2+ (NEG); URINE SPECIFIC GRAVITY 1.014 (1.003-1.035)
[2016-10-22 13:43] LABS: URINE BACTERIA AUWI NEG (NEGATIVE); URINE SQUAMOUS EPITHELIAL CELL NONE SEEN /[HPF]; UWBCS1 AUWI 0-2 (0-5)
[2016-10-22 13:44] LABS: ALBUMIN SERUM 3.3 g/dL (3.5-5.0); BILIRUBIN, DIRECT 0.7 mg/dL (0.0-0.2); BILIRUBIN,INDIRECT 0.9 mg/dL (0.0-0.9); BILIRUBIN,TOTAL 1.6 mg/dL (0.2-2.0); CALCIUM SERUM 8.5 mg/dL (8.4-10.2); POTASSIUM 3.4 mmol/L (3.5-5.1); PROTEIN TOTAL SERUM 6.9 g/dL (6.0-8.3)
[2016-10-22 13:49] LABS: CULTURE INDICATED? NO
[2016-10-22 14:04] LABS: POC - CKMB 2.7 ng/mL (0.0-7.9); POC - TROPONIN <0.05 ng/mL (<=0.05)
[2016-10-22 19:08] LABS: %MB 2.8 % (0.0-4.0); MB 4.7 ng/ml
[2016-10-22 21:05] LABS: CREATININE,RANDOM URINE 98 mg/dL; SODIUM URINE RANDOM 47 mmol/L
[2016-10-23 01:36] LABS: %MB 3.2 % (0.0-4.0); MB 4.9 ng/ml
[2016-10-23 06:31] LABS: HEMATOCRIT 37.3 % (38.0-50.0); HEMOGLOBIN 11.8 gm/dL (13.0-16.0); MEAN CELL VOLUME 86.2 FL (83-96); MEAN CORPUSCULAR HEMOGLOBIN 27.3 PG (28-34); MEAN CORPUSCULAR HGB CONC 31.7 g/dL (30-36); MEAN PLATELET VOLUME 9.1 FL (6.5-11.5); RED BLOOD COUNT 4.32 X10e (3.90-5.60); RED CELL DISTRIBUTION WIDTH 17.5 % (11.0-15.5)
[2016-10-23 06:43] LABS: INR 1.4
[2016-10-23 07:04] LABS: ALBUMIN SERUM 3.2 g/dL (3.5-5.0); BILIRUBIN,TOTAL 1.7 mg/dL (0.2-2.0); CALCIUM SERUM 8.9 mg/dL (8.4-10.2); CREATININE SERUM 1.6 mg/dL (0.6-1.4); GLOM FILT RATE Estimated 45.8 mL/min (>60); MAGNESIUM 1.5 mg/dL (1.6-3.0); PHOSPHOROUS 3.4 mg/dL (2.5-4.6); POTASSIUM 3.6 mmol/L (3.5-5.1); PROTEIN TOTAL SERUM 6.7 g/dL (6.0-8.3)
[2016-10-23 11:00] LABS: BUN/CREATININE RATIO 20.66; CALCIUM SERUM 8.6 mg/dL (8.4-10.2); CREATININE SERUM 1.5 mg/dL (0.6-1.4); GLOM FILT RATE Estimated 49.6 mL/min (>60); MAGNESIUM 1.5 mg/dL (1.6-3.0); POTASSIUM 3.2 mmol/L (3.5-5.1)
[2016-10-24 05:21] LABS: BUN/CREATININE RATIO 18.12; CALCIUM SERUM 8.8 mg/dL (8.4-10.2); CREATININE SERUM 1.6 mg/dL (0.6-1.4); GLOM FILT RATE Estimated 45.8 mL/min (>60); MAGNESIUM 1.9 mg/dL (1.6-3.0); POTASSIUM 3.3 mmol/L (3.5-5.1)
[2016-10-25 06:19] LABS: BUN/CREATININE RATIO 19.33; CALCIUM SERUM 9.2 mg/dL (8.4-10.2); CREATININE SERUM 1.5 mg/dL (0.6-1.4); GLOM FILT RATE Estimated 49.6 mL/min (>60); MAGNESIUM 2.2 mg/dL (1.6-3.0); POTASSIUM 3.5 mmol/L (3.5-5.1)
[2016-10-25] MEDS ORDERED: HYDROCODON-ACE1 EAC7 PO (13:48)
[2016-10-25] MEDS ORDERED: BUMEX2 MG PO (13:50)
[2016-10-25] MEDS ORDERED: MAGNESIUM400 M1 PO (13:51)
[2016-10-25] MEDS ORDERED: DESYREL50 MG PO (13:52)
[2016-10-25] MEDS ORDERED: HYDRALAZINE HCL50 MG PO (13:53)
== END 2016-10-25 17:40 | disposition home or self-care (01) | DRG 291 ==
LOC: CED 12:57 → CEDOF 15:25 → C3A PCU 18:17
PROVIDERS: Emergency Medicine; Family Medicine; Internal Medicine
PROC: B246ZZZ Ultrasonography of Right and Left Heart (ICD-10-PCS; principal; 2016-10-23)
DX: I13.0 Hypertensive heart and chronic kidney disease with heart failure and stage 1 through stage 4 chronic kidney disease, or unspecified chronic kidney disease (principal); I50.23 Acute on chronic systolic (congestive) heart failure; E11.22 Type 2 diabetes mellitus with diabetic chronic kidney disease; N17.9 Acute kidney failure, unspecified; N18.3 Chronic kidney disease, stage 3 (moderate); E11.65 Type 2 diabetes mellitus with hyperglycemia; E44.1 Mild protein-calorie malnutrition; I08.1 Rheumatic disorders of both mitral and tricuspid valves; Z68.41 Body mass index [BMI] 40.0-44.9, adult; Z79.4 Long term (current) use of insulin; R44.1 Visual hallucinations; R53.83 Other fatigue; E83.42 Hypomagnesemia; I48.2 Chronic atrial fibrillation; Z79.01 Long term (current) use of anticoagulants; E66.01 Morbid (severe) obesity due to excess calories; K21.9 Gastro-esophageal reflux disease without esophagitis; Z79.82 Long term (current) use of aspirin; I44.7 Left bundle-branch block, unspecified; E78.5 Hyperlipidemia, unspecified; G47.33 Obstructive sleep apnea (adult) (pediatric); E87.6 Hypokalemia; R80.9 Proteinuria, unspecified; Z91.19 Patient's noncompliance with other medical treatment and regimen; Z95.810 Presence of automatic (implantable) cardiac defibrillator; Z82.49 Family history of ischemic heart disease and other diseases of the circulatory system
CPT/HCPCS: 36415; 71010; 76770; 80048; 80053; 80076; 81003; 82550; 82553; 82570; 82947; 83036; 83735; 83880; 84100; 84132; 84300; 84443; 84484; 85025; 85027; 85610; 87086; 89190; 93005; 93306; 94760; 97161; 97165; 99285; G8978-GP; G8979-GP; G8980-GP; G8987-GO; G8988-GO; G8989-GO; J0360; J1250; J1815; J1940; J3475

== ENCOUNTER 2016-12-23 13:15 | Emergency (ER) | payer MEDICARE, OTHER ==
[~2016-12-23 13:15] MED LIST changes: +BUMEX2 MG PO; +DESYREL50 MG PO; +HYDRALAZINE HCL50 MG PO; +HYDROCODON-ACE1 EAC7 PO; +MAGNESIUM400 M1 PO
== END 2016-12-23 15:15 | disposition home or self-care (01) ==
LOC: SED 13:15
DX: B02.9 Zoster without complications (principal); E11.9 Type 2 diabetes mellitus without complications; K21.9 Gastro-esophageal reflux disease without esophagitis; Z79.4 Long term (current) use of insulin; Z79.899 Other long term (current) drug therapy
CPT/HCPCS: 99282

== ENCOUNTER → 2017-01-27 | Outpatient (CLI) | payer MEDICARE, OTHER ==
[2017-01-27 15:47] LABS: ALBUMIN SERUM 3.6 g/dL (3.5-5.0); BILIRUBIN,TOTAL 0.5 mg/dL (0.2-2.0); CALCIUM SERUM 8.3 mg/dL (8.4-10.2); CREATININE SERUM 1.7 mg/dL (0.6-1.4); GLOM FILT RATE Estimated 42.6 mL/min (>60); POTASSIUM 3.6 mmol/L (3.5-5.1)
== END | disposition home or self-care (01) ==
LOC: CLAB 14:51
PROVIDERS: Internal Medicine Cardiovascular Disease
DX: I50.9 Heart failure, unspecified (principal)
CPT/HCPCS: 36415; 80053